=== PATIENT | male | born 1940 | race Caucasian/White ===

== ENCOUNTER 2019-03-21 20:13 | Emergency (ER) | payer MEDICARE ==
[2019-03-21] MEDS ORDERED: Diphtheria,Pertussis(Acell),Tetanus Vaccine 0.5 ML SDV IM ONE (21:18)
[2019-03-21] MEDS ORDERED: fentaNYL 100 MCG/2 ML SDV IVPUSH ONE (21:19)
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
[2019-03-21] MEDS ORDERED: Sodium Chloride 0.9% 1,000 ML IV SCH (21:30)
== END 2019-03-21 23:20 | disposition other institution (70) ==
LOC: JP.ED 20:13
DX: T24.301A Burn of third degree of unspecified site of right lower limb, except ankle and foot, initial encounter (principal); Z23 Encounter for immunization; Z91.011 Allergy to milk products; Z79.899 Other long term (current) drug therapy
CPT/HCPCS: 90471; 90715; 96361; 96374; 99284; J3010; J7030